=== PATIENT | female | born 1950 | race Caucasian/White ===

== ENCOUNTER → 2021-01-03 | Outpatient (CLI) | payer OTHER ==
--- NOTE | 2021-01-03 17:27 | CARDNUC ---
[place] [address] CARDIAC NUCLEAR IMAGING REPORT Name: ALVERTO SUAZO Room: [facility]#: [id number] Admission: 01/03/21 Attend Phys: David Ramirez, Discharge: Date of : 46 Date of Service: 01/03/21 1726 Report #: [id number] THIS REPORT FOR: cc: David Oneil MD, Michael D. MD Liston, Michael J. MD [facility] ~ APPROVED REPORT Imaging Protocol: Rest Tc-99m/Stress Tc-99m 1 day Study performed: 01/03/2021 09:30:00 Indication: Chest pain Patient Location: Out-Patient Stress Nurse: VINAYAK Torrez Tech:RENETTA Gorman Ht: 5 ft 9 in Wt: 171 lbs BSA: 1.93 m2 BMI: 25.24 Medical History Medical History: Diabetes, Hyperlipidemia Medications: lovastatin Allergies: tramadol Cardiac Risk Factors: Age, DM, Hyperlipidemia, Past Smoker Exercise History: Sedentary Resting Data Rest SPECT myocardial perfusion imaging was performed in supine position 30 minutes following the intravenous injection of 9.9 mCi of Tc-99m Sestamibi. Time of rest injection: 1000 Date: 01/03/2021 The images were gated to evaluate regional wall motion and calculate left ventricular ejection fraction. Administration Route: IV Pharmacologic Stress Pharmacologic stress test was performed by injecting Regadenoson 0.4 mg IV push over 10-15 seconds immediately followed by the intravenous injection of 29.7 mCi of Tc-99m Sestamibi. Time of stress injection: 1125 Date: 01/03/2021 Administration Route: IV Gated Stress SPECT was performed 40 minutes after stress injection. The images were gated to evaluate regional [place] [address] CARDIAC NUCLEAR IMAGING REPORT Name: ALVERTO SUAZO Room: [facility]#: [id number] Admission: 01/03/21 Attend Phys: David Ramirez, Discharge: Date of : 46 Date of Service: 01/03/21 1726 Report #: [id number] left ventricular ejection fraction. Stress only was performed in the Supine position. Stress Test Details Stress Test: Pharmacologic stress testing performed using 0.4 mg of regadenoson per 5 mL given IV over 10 seconds. Reason for pharmacologic stress test: physical limitation. HR Max Heart Rate (APMHR): 148 bpm Resting HR: 72 bpm Target HR (85% APMHR): 125 bpm Max HR Achieved: 91 bpm % of APMHR: 61 Recovery HR: 85 bpm BP Resting BP: 148/91 mmHg Max BP: 150/60 mmHg Recovery BP: 144/78 mmHg ECG Resting ECG: Sinus Rhythm Stress ECG: Sinus Rhythm ST Change: None Arrhythmia: None Recovery ECG: Sinus Rhythm Recovery ST Change: None Recovery Arrhythmia: None Clinical Reason for Termination: Completed protocol The patient tolerated Lexiscan infusion without significant cardiac symptoms. Nurse Comments pt has a bad back and cannot walk on [place] Stress ECG Conclusion The baseline twelve-lead EKG shows sinus rhythm without significant ST segment abnormality. EKGs obtained during and post Lexiscan infusion show sinus rhythm with no significant ST segment changes when compared to baseline. There were occasional unifocal premature ventricular contractions noted. Study Quality Study: Good Artifact: [place] [address] CARDIAC NUCLEAR IMAGING REPORT Name: ALVERTO SUAZO Room: [facility]#: [id number] Admission: 01/03/21 Attend Phys: David Ramirez, Discharge: Date of : 46 Date of Service: 01/03/21 1726 Report #: [id number] Study Data At rest, the left ventricular ejection fraction was 65%.. Post stress, the left ventricular ejection was 55%.. TID = 0.92. Perfusion Perfusion images obtained at rest and post Lexiscan stress show a large region of moderate photopenia involving the basal to distal inferior wall that appears slightly more pronounced on stress than resting images. No other significant fixed or reversible defects are identified. Wall Motion Global LV systolic function is preserved. There is slight hypokinesis of the basal to mid inferoseptal wall. Nuclear Conclusion ECG Findings: negative for ischemia Clinical Findings: negative for ischemia Nuclear Findings: positive for ischemia Exercise Capacity: not assessed Left Ventricular Function: Preserved Risk Study: moderate Perfusion images suggest possible inferior infarct with maco-infarct ischemia. Global LV systolic function is preserved with wall motion abnormalities as outlined above. This is a moderate risk study. <Conclusion> The baseline twelve-lead EKG shows sinus rhythm without significant ST segment abnormality. EKGs obtained during and post Lexiscan infusion show sinus rhythm with no significant ST segment changes when compared to baseline. There were occasional unifocal premature ventricular contractions noted. <ELECTRONICALLY SIGNED> By: David Ramirez MD, FACC 01/03/211725 25 25 David Ramirez MD, FACC /INF
== END ==
LOC: M.NUC 12-27 12:42
PROVIDERS: ATTEND Internal Medicine Cardiovascular Disease
DX: I25.89 Other forms of chronic ischemic heart disease (principal); R07.89 Other chest pain

== ENCOUNTER → 2021-01-19 | Outpatient (CLI) | payer OTHER ==
[~2021-01-19] VITALS: Ht 175.3 cm; Wt 82.3 kg
[2021-01-19] VITALS (8 sets, daily range): BP systolic 111–148; BP diastolic 49–101
[~2021-01-19] MED LIST: LOVASTAT40 PO; MELOXICAM15 MG PO; OZEMPIC1 MG/0.71 SUBQ; VITAMIN D3 COM1 EACH PO
[2021-01-19 10:43] LABS: HEMATOCRIT 38.7 % (37.0-47.0); HEMOGLOBIN 13.2 gm/dL (12.0-15.0); MCH 31.1 pg (26.0-34.0); MCHC 34.1 g/dL (28.0-37.0); MCV 91.3 fL (80.0-100.0); MPV 8.6 fl. (7.2-11.1); RBC 4.24 mil/uL (4.20-5.00); RDW-CV 13.8 % (10.5-14.5); WBC 9.9 thou/uL (4.0-11.0)
[2021-01-19 11:09] LABS: ANION GAP 6 mmol/L (7-16); BUN 14 mg/dL (7-18); CALCIUM 9.4 mg/dL (8.5-10.1); CHLORIDE 102 mmol/L (98-107); CO2 31 mmol/L (21-32); CREATININE 0.7 mg/dL (0.6-1.3); GLUCOSE 108 mg/dL (70-99); POTASSIUM 4.1 mmol/L (3.5-5.1); SODIUM 139 mmol/L (136-145)
[2021-01-19 11:14] LABS: ALBUMIN 3.7 g/dL (3.4-5.0); ALKALINE PHOSPHATASE 71 U/L (46-116); CHOLESTEROL 216 mg/dL (<200); HDL CHOLESTEROL 41 mg/dL (>40); LDL CHOLESTEROL 130 mg/dL (<100); SGOT 21 U/L (15-37); SGPT 35 U/L (30-65); TC:HDL 5.3 Ratio (Not establshd); TOTAL BILIRUBIN 0.4 mg/dL (<0.1-1.0); TOTAL PROTEIN 7.4 g/dL (6.4-8.2); TRIGLYCERIDE 225 mg/dL (<150); VLDL 45 mg/dL (<40)
--- NOTE | 2021-01-19 11:14 | EKG ---
[place] [address] ELECTROCARDIOGRAM REPORT Name: NAZANINALVERTO HAWKINS Ju[place] Room: [facility]#: [id number] Admission: 01/19/21 Attend Phys: Justin Aranda Discharge: Date of : 46 Date of Service: 01/19/21 1047 Report #: [id number] THIS REPORT FOR: //name// [facility] Test Date: 2021-01-19 Test Time: 10:47:26 Pat Name: ALVERTO SUAZO Department: Room: Gender: F [employer]: : 1950 Requested By: Abhijeet Bhandari Order Number: [id number] Shen MD: Abhijeet Bhandari Measurements Intervals [place] Rate: 67 P: 32 KS: 160 QRS: 57 QRSD: 99 T: 37 QT: 419 QTc: 443 Interpretive Statements Sinus rhythm Inferior infarct, old possible No previous ECG available for comparison Electronically Signed On 01-19-2021 11:14:10 [employer]IL[employer] 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
[2021-01-19 11:17] LABS: SERUM ASSESSMENT Clear
[2021-01-19 11:41] LABS: APTT 26.6 Seconds (25.0-31.3); PROTIME 10.3 Seconds (9.20-11.50)
--- NOTE | 2021-01-19 18:28 | CARD ---
[address] [address] CARDIAC CATH REPORT Name: ALVERTO SUAZO Room: [facility]#: [id number] Admission: 01/19/21 Attend Phys: Abhijeet Bhandari MD, Discharge: Date of : 46 Report #: [id number] THIS REPORT FOR: cc: David Oneil MD, Michael D. MD Liston, Michael J. MD [facility] ~ APPROVED REPORT Study performed: 01/19/2021 11:53:01 Patient Details Patient Status: Out-Patient Room #: The patient is a 70 year-old female Event Personnel David Ramirez Director Workforce Management, Misty Moses RN RN, Amna Harden RN Monitor, Fausto Mccormack RTR Scrub Procedures Performed Art Access - R femoral artery* Left Heart Cath w/or w/o Coronaries [id number] [facility] Hemostasis w/ Angioseal Admission/Lab Medications/Medications given during procedure Lidocaine Subcut 10 ml, Midazolam (Versed) IV 1 mg, Fentanyl IV 25 mcg Procedure Narrative The patient was brought electively to the Cardiac Catheterization Laboratory and was prepped and draped in a sterile manner. The right femoral was infiltrated with 2% Lidocaine subcutaneous anesthesia. IV conscious sedation was used throughout procedure with appropriate monitoring and was performed in the presence of a registered nurse who was an independent trained observer other than the physician performing the procedure. A Enterprise 6 FR sheath was inserted into the right femoral artery. Coronary angiography was performed using coronary diagnostic catheters. The right coronary system was accessed and visualized with a Diagnostic JR4 6Fr catheter. The left coronary system was accessed and visualized with a Diagnostic JL4 6Fr catheter. The left ventricle was accessed and visualized with a Diagnostic Pigtail 6Fr catheter. Left ventricular/Aortic Valve gradient assessed via catheter pullback. Left ventriculogram was performed in [place] projection. Pre-demployment femoral angiogram was performed . Closure device was deployed with a 6 [place] [address] CARDIAC CATH REPORT Name: ALVERTO SUAZO Room: [facility]#: [id number] Admission: 01/19/21 Attend Phys: Abhijeet Bhandari MD, Discharge: Date of : 46 Report #: [id number] tolerated the procedure well and there were no complications associated with the procedure. There was no hematoma. Intraoperative Conscious Sedation Sedation start time: 1221 Case end Time: 1236 Fentanyl 25 mcg Versed 1 mg Fluoro Time: 1.8 minutes Dose: DAP 75840 cGycm2 798 mGy Contrast Type and Amount: Omnipaque 90 mL Diagnostic Cath Left Main The left main coronary artery is normal and bifurcates into a left anterior descending and circumflex coronary artery. LAD The left anterior descending coronary artery is mildly, 10%, plaque proximally and mildly, 40%, plaque in the midportion. The distal vessel appears free of significant disease. Diagonal 1 Small in caliber and free of significant disease. Diagonal 2 Small in caliber and free of significant disease. Diagonal 3 Small in caliber and free of significant disease. Circumflex The circumflex coronary artery is minimally 10% plaque proximally. The vessel terminates in a very large branching obtuse marginal branch. Distally the circumflex gives off extensive collaterals to the distal right coronary artery, PDA and posterior lateral LV branch. OM1 The first obtuse marginal branch is a large branch that appears free of significant disease. Right Coronary The right coronary artery is totally occluded proximally with faint right to right collaterals. R PDA The PDA is very faintly visualized by wgyf-wy-nqfhy collaterals. RPLV A large posterior lateral LV branch appears to fill by left to left collaterals. Left Ventriculography The left ventricle is normal in size with Reduced contractility. The left ventricular ejection fraction is estimated to be 40-45%. Left ventricular wall motion abnormalities are present. There is a region of akinesis involving the basal to midportion of the inferior wall. Hemodynamics The aortic pressure is 144/69 mmHg with a mean of 85 [place] [address] CARDIAC CATH REPORT [facility]: [facility]VERT[facility] SUAZO [id number] Admission: 01/19/21 Attend Phys: Abhijeet Bhandari MD, Discharge: Date of : 46 Report #: [id number] ventricular pressure is 132/2 mmHg with a mean of mmHg. The left ventricular end diastolic pressure is 16 mmHg. Conclusion 1. Chronically occluded right coronary artery that appears to be a dominant vessel that is filled primarily by [id number] collaterals. 2. Minimal nonocclusive disease involving the LAD and circumflex. 3. Mild left ventricular systolic dysfunction with wall motion abnormalities as outlined above. 4. Minimally elevated left ventricular end-diastolic pressure. Recommendations 1. Continue aggressive medical management and risk factor modification. <ELECTRONICALLY SIGNED> By: David Ramirez MD, FACC 01/19/211827 27 27Micneo Ramirez MD, FACC /INF
== END | disposition home or self-care (01) ==
LOC: M.CL 06:24
PROVIDERS: ATTEND Internal Medicine
DX: R07.9 Chest pain, unspecified (principal); I25.10 Atherosclerotic heart disease of native coronary artery without angina pectoris; I25.82 Chronic total occlusion of coronary artery; E11.9 Type 2 diabetes mellitus without complications; E78.5 Hyperlipidemia, unspecified; M19.90 Unspecified osteoarthritis, unspecified site; Z98.890 Other specified postprocedural states; Z79.899 Other long term (current) drug therapy; Z88.8 Allergy status to other drugs, medicaments and biological substances